=== PATIENT | male | born 1970 | race Caucasian/White ===

== ENCOUNTER 2018-07-05 09:22 | Outpatient (CLI) | payer BC ==
--- NOTE | 2018-07-05 10:06 | RAD ---
FOUR VIEWS OF THE LUMBOSACRAL SPINE: Comparison: 02-09-16 History: Low back pain. FINDINGS: AP, lateral, flexion and extension views of the lumbosacral spine were performed. The patient is stat us post fusion of L5 and S1 with bilateral pedicle screws. A disc spacer is seen in intervening disc space. No perihardware lucency is seen. There appears to be loss of height of the disc spacer when co mpared to the prior examination. Alignment is unchanged with flexion and extension. There may be subt le grade I anterolisthesis of L5 on S1. IMPRESSION: Post-surgical changes of the lumbar spine with unchanged alignment with bending. POS: [facility]
== END 2018-07-05 09:23 | disposition home or self-care (01) ==
LOC: TBSIIMAG 09:22
PROVIDERS: ATTEND Neurological Surgery
DX: M54.5 Low back pain (principal); Z98.1 Arthrodesis status
CPT/HCPCS: 72110